=== PATIENT | female | born 1965 | race Caucasian/White ===

== ENCOUNTER 2023-09-14 11:42 | Emergency (ER) | payer OTHER | END 2023-09-14 13:51 | disposition home or self-care (01) | LOC: JP.ED 11:42 | DX: R20.2 Paresthesia of skin (principal); I10 Essential (primary) hypertension; Z90.710 Acquired absence of both cervix and uterus; Z79.899 Other long term (current) drug therapy; Z88.0 Allergy status to penicillin; Z88.2 Allergy status to sulfonamides; Z88.5 Allergy status to narcotic agent | CPT/HCPCS: 99283 ==

== ENCOUNTER 2023-10-03 15:15 | Emergency (ER) | payer OTHER ==
[2023-10-03 15:49] LABS: BASOPHILS ABSOLUTE AUTO 0.04 K/uL (0.00-0.10); BASOPHILS PERCENT AUTO 0.5 % (0.1-1.3); EOSINOPHILS ABSOLUTE AUTO 0.37 K/uL (0.00-0.40); EOSINOPHILS PERCENT AUTO 4.7 % (0.0-5.4); HEMATOCRIT 39.7 % (34.3-46.0); HEMOGLOBIN 13.2 g/dL (11.2-15.5); IMMATURE GRAN ABSOLUTE AUTO 0.02 K/uL (0.00-0.23); IMMATURE GRAN PERCENT AUTO 0.3 % (0.0-0.7); LYMPHOCYTES ABSOLUTE AUTO 2.79 K/uL (0.8-3.3); LYMPHOCYTES PERCENT AUTO 35.4 % (11.4-47.7); MEAN CORPUSCULAR HEMOGLOBIN 28.6 pg (31.6-35.5); MEAN CORPUSCULAR HGB CONC 33.2 g/dL (31.6-35.5); MEAN CORPUSCULAR VOLUME 86.1 fL (81.4-99.0); MONOCYTES ABSOLUTE AUTO 0.71 K/uL (0.20-0.90); NEUTROPHILS ABSOLUTE AUTO 3.96 K/uL (1.0-7.6); NEUTROPHILS PERCENT AUTO 50.1 % (40.0-78.1); PLATELET COUNT,PLT 332 K/uL (130-375); RED BLOOD CELL COUNT 4.61 M/uL (3.77-5.24); WHITE BLOOD CELL COUNT,WBC 7.9 K/uL (3.2-11.0)
[2023-10-03 16:04] LABS: ANION GAP 11.5 mmol/L (5.0-14.0); BLOOD UREA NITROGEN,BUN 10 mg/dL (7-18); CALCIUM 8.6 mg/dL (8.5-10.1); CARBON DIOXIDE,CO2 27 mmol/L (21-32); CHLORIDE,CL 98 mmol/L (100-108); CREATININE 0.9 mg/dL (0.6-1.0); ESTIMATED GFR 74 mL/min (>60); GLUCOSE RANDOM 106 mg/dL (74-106); POTASSIUM,K 3.5 mmol/L (3.6-5.2); SODIUM,NA 133 mmol/L (140-148)
[2023-10-03] MEDS ORDERED: Magnesium Oxide 400 MG Tab PO ONE (16:31)
[2023-10-03] MEDS ORDERED: Sodium Chloride 0.9% 1,000 ML IV ONE (16:32)
== END 2023-10-03 19:10 | disposition home or self-care (01) ==
LOC: JP.ED 15:15
DX: R25.2 Cramp and spasm (principal); I10 Essential (primary) hypertension; Z79.899 Other long term (current) drug therapy; Z88.0 Allergy status to penicillin; Z88.2 Allergy status to sulfonamides; Z88.5 Allergy status to narcotic agent
CPT/HCPCS: 36415; 80048; 83605; 83735; 85025; 85379; 86140; 93971; 96360; 99284; A9270; J7030

== ENCOUNTER 2023-10-10 13:21 | Emergency (ER) | payer OTHER ==
[2023-10-10] MEDS ORDERED: Sodium Chloride 0.9% 10 ML Syringe FLUSH PRN (14:22)
[2023-10-10] MEDS ORDERED: fentaNYL 50 MCG/ML SDV IVPUSH ONE (14:22)
[2023-10-10] MEDS ORDERED: Sodium Chloride 0.9% 100 ML IV SCH (14:30)
[2023-10-10] MEDS ORDERED: Iopamidol 755 Mg/ML 100 ML Bottle IV SCH (14:30)
[2023-10-10] MEDS ORDERED: fentaNYL 100 MCG/2 ML SDV IVPUSH ONE (14:56)
[2023-10-10 15:06] LABS: ANION GAP 12.5 mmol/L (5.0-14.0); CALCIUM 8.7 mg/dL (8.5-10.1); EST CRCL DRUG DOSING (CG) 52.31 mL/min; POTASSIUM,K 3.5 mmol/L (3.6-5.2)
[2023-10-10 15:10] LABS: BASOPHILS ABSOLUTE AUTO 0.02 K/uL (0.00-0.10); BASOPHILS PERCENT AUTO 0.2 % (0.1-1.3); EOSINOPHILS ABSOLUTE AUTO 0.24 K/uL (0.00-0.40); HEMOGLOBIN 13.4 g/dL (11.2-15.5); IMMATURE GRAN ABSOLUTE AUTO 0.09 K/uL (0.00-0.23); IMMATURE GRAN PERCENT AUTO 0.7 % (0.0-0.7); LYMPHOCYTES ABSOLUTE AUTO 1.97 K/uL (0.8-3.3); LYMPHOCYTES PERCENT AUTO 16.3 % (11.4-47.7); MEAN CORPUSCULAR HEMOGLOBIN 28.2 pg (31.6-35.5); MEAN CORPUSCULAR HGB CONC 33.5 g/dL (31.6-35.5); MONOCYTES ABSOLUTE AUTO 0.75 K/uL (0.20-0.90); MONOCYTES PERCENT AUTO 6.2 % (3.3-12.6); NEUTROPHILS ABSOLUTE AUTO 8.99 K/uL (1.0-7.6); NEUTROPHILS PERCENT AUTO 74.6 % (40.0-78.1); PLATELET COUNT,PLT 427 K/uL (130-375); RED BLOOD CELL COUNT 4.76 M/uL (3.77-5.24); WHITE BLOOD CELL COUNT,WBC 12.1 K/uL (3.2-11.0)
[2023-10-10] MEDS ORDERED: Ketamine 500 MG/5 ML MDV IV ONE ×4 (15:59→18:05)
[2023-10-10] MEDS ORDERED: Heparin Sodium 5,000 Units/ML Vial IVPUSH ONE (16:44)
[2023-10-10] MEDS ORDERED: Heparin Sodium/D5W 25,000 UNITS/500 ML BAG IV SCH (16:45)
[2023-10-10] MEDS ORDERED: HYDROmorphone 1 MG/ML Syringe IVPUSH ONE (18:08)
[2023-10-11] MEDS ORDERED: Gabapentin 400 MG Cap PO SCH (09:00)
== END 2023-10-10 18:52 ==
LOC: JP.ED 13:21
DX: I70.92 Chronic total occlusion of artery of the extremities (principal); I10 Essential (primary) hypertension; Z88.5 Allergy status to narcotic agent; Z88.0 Allergy status to penicillin; Z88.2 Allergy status to sulfonamides; Z79.899 Other long term (current) drug therapy
CPT/HCPCS: 36415; 75635; 80048; 85025; 96365; 96366; 96375; 96376; 99284; J1170; J1644; J3010; J3490; Q9967